=== PATIENT | female | born 2000 | race Caucasian/White ===

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

== ENCOUNTER 2023-08-28 09:55 | Emergency (ER) | payer BC, SELFPAY ==
[2023-08-28 10:00] VITALS: BP 124/65; PULSE 110; RESP 20; TEMP 37.9; O2SAT 100
--- NOTE | 2023-08-28 10:13 | ED.URI ---
HPI - URI/Sore Throat General Chief Complaint: Upper Respiratory Infection Stated Complaint: swollen toncils/fever Time Seen by Provider: 08/28/23 10:13 Source: patient, RN notes reviewed and old records reviewed Mode of arrival: ambulatory Limitations: no limitations History of Present Illness HPI Narrative: 22 year old female who presents to [facility] care with complaints of sore throat since Tuesday of this week 5 days ago with some fevers and also slight cough. Mother reports that daughters symptoms increased last night and she has felt nauseated today and has had emesis. Patient reports painful swallowing. Patient has taken Tylenol and Ibuprofen for her pain.Patient is able to control her own secretions and is able to swallow though painful. MD elicited complaint: sore throat and other (nausea and vomiting) Onset (ago): day(s) (5) Severity: severe Pain scale (0-10): 8 Able to tolerate fluids by mouth: Yes Exacerbating factors: swallowing Treatments prior to arrival: acetaminophen and ibuprofen Related Data Allergies Allergy/AdvReac Type Severity Reaction Status Date / Time No Known Allergies Allergy Mild Verified 10/05/21 10:24 Review of Systems Review of Systems: CONSTITUTIONAL: Reports malaise, chills, sweats, or fever. EYES: Denies visual changes, redness, or discharge. ENT: Reports rhinorrhea, congestion, sinus pain,no otalgia and positive for sore throat. CARDIOVASCULAR: Denies chest pain, palpitations, or edema. RESPIRATORY: Reports cough.? Denies dyspnea. GASTROINTESTINAL: Denies abdominal pain, positive for nausea, vomiting,no diarrhea SKIN: Denies rash or itching. MUSCULOSKELETAL: Denies myalgia. NEUROLOGIC: Denies headache. All systems reviewed & are unremarkable except as noted in HPI and below PMFSH Past Medical History Medical History Ear infection Pneumonia as child Social History Social History Smoking status: Never smoker Second hand tobacco smoke exposure: Yes Additional smoking assessment comments: vape Alcohol intake: never Substance use: never Substance use type: does not use Living arrangements: with family Occupation/Education: student Gender identity (if verbalized by the patient): Female Comments At time of signature, agree with nursing past medical, surgical, social and family history. There is no relevant family history pertinent to the presenting complaint Exam Narrative: GENERAL: Well-appearing, well-nourished, and in no acute distress. HEAD: Normocephalic EYES: PERRLA, conjunctivae clear ENT: Nares clear, turbinates edematous and erythematous, clear discharge. Mucous membranes moist. TM pearly will with dull light reflex bilaterally; no tragal tenderness. Oropharynx erythematous without lesions. Tonsils red enlarged and with exudates, no drooling, no hoarseness, no trismus, uvula midline, painful swallowing, able to control own secretion. NECK: Supple. No lymphadenopathy CHEST: Clear to auscultation, breath sounds equal. No wheezing, rhonchi, rales, or stridor. No respiratory distress, speaks in full sentences.slight cough,SAO2 100% on room air HEART: Regular rate and rhythm. No murmur heard. SKIN: Warm, dry, no rash. NEURO: Alert and oriented x3. PSYCH: Normal mood and affect Course Course Emergency Course: Patient is aware of diagnosis, understands and agrees to treatment plan.? Anticipatory guidance given.? Patient agrees to follow-up as directed and is aware of reasons to seek care at the emergency department. Portions of this record may have been created with voice recognition software Level of Care: Express Care Visit Vital Signs Vital signs: Vital Signs Temperature 37.9 C H 08/28/23 10:00 Pulse Rate 110 H 08/28/23 10:00 Respiratory Rate 20 08/28/23 10:00 Blood Pressure 124/65 08/28/23 10:
[2023-08-28] MEDS: ONDANSETRON HCL ODT 4 MG TABLET PO (10:32)
== END 2023-08-28 10:57 | disposition home or self-care (01) ==
PROVIDERS: Emergency Provider Registered Nurse
DX: J02.0 Streptococcal pharyngitis (principal); R11.2 Nausea with vomiting, unspecified
CPT/HCPCS: 87880; 99213; A9270; G0463